=== PATIENT | female | born 1990 ===

== ENCOUNTER 2018-01-16 15:42 | Emergency (ER) | payer SELFPAY ==
[2018-01-16 16:08] VITALS: BP 131/69
--- NOTE | 2018-01-16 16:31 | RAD ---
Indication: Thumb injury. 3 views of left thumb demonstrates no fracture. No other bone or joint abnormality is identified. IMPRESSION: No fracture of the left thumb is noted.
--- NOTE | 2018-01-16 16:35 | ED ---
Upper Extremity Pain - HPI Summary HPI Summary: 27 yr old female with left thumb pain. Onset prior to coming here when she closed thumb in car door. She complains of some swelling to the distal thumb. No other complaints. Pain is moderate. - History of Current Complaint Chief Complaint: UCUpperExtremity Stated Complaint: (L) THUMB COMPLAINT Time Seen by Provider: 01/16/18 16:09 Hx Last Menstrual Period: 12/25/17 - Allergies/Home Medications Allergies/Adverse Reactions: Allergies Allergy/AdvReac Type Severity Reaction Status Date / Time No Known Allergies Allergy Verified 01/16/18 16:08 Home Medications: Home Medications NK [No Home Medications Reported] 01/16/18 [History Confirmed 01/16/18] PMH/Surg Hx/FS Hx/Imm Hx - Surgical History Surgery Procedure, Year, and Place: Ear surgery Infectious Disease History: No Infectious Disease History: Denies: Traveled Outside the [place] in Last 30 Days - Social History Alcohol Use: None Substance Use Type: Reports: None Smoking Status (MU): Never Smoked Tobacco Review of Systems Constitutional: Negative Positive: Other - thumb injury All Other Systems Reviewed And Are Negative: Yes Physical Exam Triage Information Reviewed: Yes Vital Signs On Initial Exam: Initial Vitals Temp Pulse Resp BP Pulse Ox 99.5 F 91 16 131/69 100 01/16/18 16:03 01/16/18 16:03 01/16/18 16:03 01/16/18 16:03 01/16/18 16:03 Vital Signs Reviewed: Yes Appearance: Positive: Well-Appearing, No Pain Distress Skin: Positive: Warm, Skin Color Reflects Adequate Perfusion Head/Face: Positive: Normal Head/Face Inspection Eyes: Positive: EOMI Neck: Positive: Supple, Nontender Respiratory/Lung Sounds: Positive: Clear to Auscultation Cardiovascular: Positive: Pulses are Symmetrical in both Upper and Lower Extremities Abdomen Description: Negative: Distended Musculoskeletal: Positive: Other - left thumb without subungal hematoma. No gross deformity. There is mild STS to the distal thumb area. Neurological: Positive: Sensory/Motor Intact, Alert, Oriented to Person Place, Time, CN Intact II-III Psychiatric: Positive: Normal - [place] Coma Scale Best Eye Response: 4 - Spontaneous Best Motor Response: 6 - Obeys Commands Best Verbal Response: 5 - Oriented Coma Scale Total: 15 Diagnostics - Vital Signs Vital Signs Temp Pulse Resp BP Pulse Ox 01/16/18 16:03 99.5 F 91 16 131/69 100 - Laboratory Lab Statement: Any lab studies that have been ordered have been reviewed, and results considered in the medical decision making process. - Radiology left thumb Xray Interpretation: No Acute Changes Radiology Interpretation Completed By: Radiologist Course/Dx - Course Course Of Treatment: 27 yr old with left thumb injury. Xray Neg. DC home. - Diagnoses Provider Diagnoses: Contusion of thumb, left Discharge - Sign-Out/Discharge Documenting (check all that apply): Discharge/Admit/Transfer - Discharge Plan Condition: Good Disposition: HOME Patient Education Materials: Contusion in Adults (ED) Referrals: Non Staff,Doctor [Primary Care Provider] - [facility] [place] [facility] REFERRAL [Outside] - 4 Days - Billing Disposition and Condition Condition: GOOD Disposition: HOME
== END 2018-01-16 16:42 | disposition home or self-care (01) ==
LOC: UCCORT 15:42
DX: S60.012A Contusion of left thumb without damage to nail, initial encounter (principal); W23.0XXA Caught, crushed, jammed, or pinched between moving objects, initial encounter; Y92.9 Unspecified place or not applicable
CPT/HCPCS: 99201; G0463

== ENCOUNTER 2019-12-15 13:19 | Emergency (ER) | payer MEDICAID ==
[2019-12-15 14:00] VITALS: BP 130/74
--- NOTE | 2019-12-15 14:16 | UC ---
Eye Complaint HPI - HPI Summary HPI Summary: Pt presents with c/o bilateral eye redness, mild swelling or upper and lower eye lids c/o of "itchy" eyes and "watering eyes" X 4 days. Pt denies any tenderness, or purulent discharge. - History of Current Complaint Stated Complaint: EYE COMPLAINT Time Seen by Provider: 12/15/19 13:53 Hx Obtained From: Patient Hx Last Menstrual Period: 12/25/17 ?: No Onset/Duration: Sudden Onset, Lasting Days, Still Present Timing: Constant Severity Initially: Mild Severity Currently: Mild Pain Intensity: 0 Aggravating Factor(s): Nothing Alleviating Factor(s): Nothing Associated Signs And Symptoms: Positive: Drainage (Clear), Swelling - upper an dlower eyelids - Risk Factors Penetrating Injury Risk Factor: Negative Globe Rupture Risk Factors: Negative Acute Glaucoma Risk Factors: Negative Optic Artery Occlusion Risk Factors: Negative - Allergies/Home Medications Allergies/Adverse Reactions: Allergies Allergy/AdvReac Type Severity Reaction Status Date / Time No Known Allergies Allergy Verified 12/15/19 14:00 Home Medications: Home Medications Fexofenadine (NF) [Marissa 180 (NF)] 180 mg PO DAILY #20 tab 12/15/19 [Rx] PMH/Surg Hx/FS Hx/Imm Hx Previously Healthy: Yes - Surgical History Surgical History: Yes Surgery Procedure, Year, and Place: Ear surgery - Family History Known Family History: Positive: Cardiac Disease - Social History Occupation: Employed Full-time Lives: With Family Alcohol Use: None Substance Use Type: None Smoking Status (MU): Never Smoked Tobacco Have You Smoked in the Last Year: No Household Exposure Type: Cigarettes Review of Systems All Other Systems Reviewed And Are Negative: Yes Constitutional: Positive: Negative Skin: Positive: Negative Eyes: Positive: Drainage - clear, Eye Redness ENT: Positive: Negative Respiratory: Positive: Negative Cardiovascular: Positive: Negative Gastrointestinal: Positive: Negative Genitourinary: Positive: Negative Motor: Positive: Negative Neurovascular: Positive: Negative Musculoskeletal: Positive: Negative Neurological/Mental Status: Positive: Negative Psychological: Positive: Negative Is Patient Immunocompromised?: No Physical Exam Triage Information Reviewed: Yes Completion Of Physical Exam Limited Due To: Extremis Vital Signs: Initial Vital Signs Temp 98.7 F 12/15/19 13:57 Pulse 90 12/15/19 13:57 Resp 14 12/15/19 13:57 BP 130/74 03/21/20 13:57 Pulse Ox 100 12/15/19 13:57 Vital Signs Reviewed: Yes Eyes: Positive: Conjunctiva Inflamed, Discharge - clear, Other: - mild swelling of upper an dlower eyelids ENT Exam: Normal ENT: Positive: Hearing grossly normal Dental Exam: Normal Neck exam: Normal Respiratory Exam: Normal Respiratory: Positive: No respiratory distress Musculoskeletal Exam: Normal Neurological Exam: Normal Psychological Exam: Normal Skin Exam: Normal Eye Complaint Course/Dx - Differential Dx/Diagnosis Differential Diagnosis/HQI/PQRI: Conjunctivitis Provider Diagnosis: Allergic conjunctivitis Discharge ED - Sign-Out/Discharge Documenting (check all that apply): Patient Departure All imaging exams completed and their final reports reviewed: No Studies - Discharge Plan Condition: Stable Disposition: HOME Prescriptions: Fexofenadine (NF) [Marissa 180 (NF)] 180 mg PO DAILY #20 tab Patient Education Materials: Conjunctivitis (ED) Referrals: Jane Demarco MD [Primary Care Provider] - If Needed Additional Instructions: Please use antihistamine eye drops that can be purchased over the counter. Use as directed and if symptoms do not improve, please follow up with your PCP as needed. - Billing Disposition and Condition Condition: STABLE Disposition: Home - Attestation Statements Provider Attestation: This patient was not seen by me. I was available for consult. Chart reviewed. ARLENE
== END 2019-12-15 14:40 | disposition home or self-care (01) ==
LOC: UCCORT 13:19
DX: H10.13 Acute atopic conjunctivitis, bilateral (principal)
CPT/HCPCS: 99212; G0463